=== PATIENT | female | born 1955 | race Caucasian/White ===

== ENCOUNTER 2022-01-01 18:41 | Inpatient (IN) | payer MEDICARE, OTHER ==
[~2022-01-01] VITALS: Ht 170.2 cm; Wt 90.7 kg
--- NOTE | 2022-01-01 19:50 | NUR ---
BLOOD COLLECTED AND SENT TO LAB
[2022-01-01] MEDS ORDERED: ACETAMINOPHEN ES 500 MG TABLET ONE (19:57)
[2022-01-01] MEDS ORDERED: IBUPROFEN 600 MG TABLET ONE (19:58)
[2022-01-01] MEDS ORDERED: IBUPROFEN 600 MG TABLET PO ONE (20:00)
[2022-01-01] MEDS ORDERED: ACETAMINOPHEN ES 500 MG TABLET PO ONE (20:00)
[2022-01-01] MEDS ORDERED: IV NS 0.9% 1,000 ML BAG IV ONE (20:00)
[2022-01-01 20:14] LABS: BASOPHILS % (AUTO) 0.3 % (0.0-2.0); HEMATOCRIT 38 % (33-45); HEMOGLOBIN 12.9 g/dL (11.5-14.8); LYMPHOCYTES # (AUTO) 0.6 K/uL (0.8-4.8); LYMPHOCYTES % (AUTO) 9.7 % (20.0-44.0); MEAN CORPUSCULAR HGB CONC 34 g/dl (31.0-36.0); MEAN CORPUSCULAR VOLUME 86 fL (82-100); MONOCYTES # (AUTO) 0.3 K/uL (0.1-1.30); MONOCYTES % (AUTO) 4.3 % (2.0-12.0); NEUTROPHILS % (AUTO) 85.7 % (43.0-81.0); PLATELET COUNT (AUTO) 172 K/uL (150-450); RED BLOOD CELL COUNT(AUTO) 4.46 MIL/uL (4.0-5.2); WHITE BLOOD COUNT (AUTO) 5.8 K/uL (4.3-11.0)
[2022-01-01 20:31] LABS: CALCIUM, SERUM 8.7 mg/dL (8.5-10.1); POTASSIUM 3.7 mmol/L (3.5-5.1)
--- NOTE | 2022-01-01 20:35 | NUR ---
PT RETURNED TO ER BED [address]
[2022-01-01 20:37] LABS: ALBUMIN 3.8 g/dL (3.4-5.0); BILIRUBIN,DIRECT 0.7 mg/dL (0.0-0.2); BILIRUBIN,TOTAL 1.3 mg/dL (0.2-1.0); TOTAL PROTEIN, SERUM 7.7 g/dL (6.4-8.2)
--- NOTE | 2022-01-01 21:17 | NUR ---
COVID SWAB DONE AND SENT TO LAB
[2022-01-01] MEDS ORDERED: ONDANSETRON HCL/PF - ER 4 MG/2 ML VIAL IV ONE (21:30)
[2022-01-01] MEDS ORDERED: PIPERACILLIN /TAZOBACTAM 3.375 G in IV D5W 50 ML IV ONE (21:30)
--- NOTE | 2022-01-01 21:30 | NUR ---
[facility] ELAN SILVA PAGED
[2022-01-01 21:33] LABS: BILIRUBIN,URINE NEGATIVE (NEGATIVE); COLOR,URINE YELLOW (YELLOW); LEUKOCYTE ESTERASE ,URINE NEGATIVE (NEGATIVE); NITRITE, URINE NEGATIVE (NEGATIVE); PH,URINE 5.5 (5.0-8.0); PROTEIN,URINE NEGATIVE (NEGATIVE); UGLUCOSE NEGATIVE (NEGATIVE); UROBILINOGEN,URINE 0.2 EU/dL (0.2)
[2022-01-01] MEDS ORDERED: PIPERACILLIN /TAZOBACTAM 3.375 G VIAL IV ONE (21:33)
[2022-01-01] MEDS ORDERED: ONDANSETRON HCL/PF 4 MG/2 ML VIAL ONE (21:33)
--- NOTE | 2022-01-01 21:45 | NUR ---
[facility] PAGED
--- NOTE | 2022-01-01 21:54 | NUR ---
[facility]PERATIONS ASSIST[facility] GI PAED ONCE AGAIN.
--- NOTE | 2022-01-01 22:05 | NUR ---
Kaylynn puentes in [facility] - 01/01/22 at 2211 by DEBRA [id number]
[2022-01-01 22:07] LABS: BACTERIA,URINE Many /HPF (None Seen); SQUAMOUS EPITHELIAL CELL,UR Few /HPF (None Seen); WBC,URINE 0-2 /HPF (0-3)
[2022-01-01] MEDS ORDERED: ONDANSETRON HCL/PF 4 MG/2 ML VIAL IVP PRN (22:30)
[2022-01-01] MEDS ORDERED: ACETAMINOPHEN 325 MG TABLET PO PRN (22:30)
[2022-01-01] MEDS ORDERED: MORPHINE SULFATE INJ 2 MG/ML DISP.SYRIN IV PRN (22:30)
--- NOTE | 2022-01-01 23:01 | NUR ---
REPORT GIVEN TO NATHANAEL.
[2022-01-01 23:27] VITALS: BP 127/71
--- NOTE | 2022-01-01 23:27 | NUR ---
PT TRANSFERRED TO 3 W PER H[facility] PROTOCOL.
[2022-01-01 23:50] VITALS: BP 127/71
--- NOTE | 2022-01-01 23:50 | NUR ---
MS LUCIA ADMITTING NOTES ADMITTED PATIENT FROM ER VIA STRETCHER THIS 67 Y.O FEMALE; AMBULATORY. ALERT, AWAKE AND ORIENTED X 4. MEXICAN SPEAKING, WITH DAUGHTER AT BEDSIDE STENOTYPIST. BREATHING IS EVEN AND NONLABORED. NO SOB NOTED. IN NO ACUTE DISTRESS NOTED. COMPLAINED OF ABDOMINAL PAIN WITH SCALE OF 8/10. VS TAKEN AND RECORDED: BP - 127/71 MM HG, MD - 90 BPM, RR - 22 BREATHS PER MINUTE, O2 SATURATION 98%, TEMP OF 100.1 WITH IV ACCESS ON LEFT HAND G20 AND RIGHT AC G20; INTACT AND SALINE LOCKED. ABLE TO MAKE NEEDS KNOWN. SAFETY MEASURES IMPLEMENTED: CALL MONTES WITHIN REACH, BED IN LOWEST LOCKED POSITION, SIDE RAILS UP X 2. TEMPERATURE RECHECKED; TEMP: 98.5. WILL CONTINUE TO MONITOR Addendum: 01/02/22 at 0530 by RAJANI FIERRO RN SKIN CHECKED DONE; INTACT.
[2022-01-01] MEDS: IV NS 0.9% 1,000 ML IV SCH (23:54)
--- NOTE | 2022-01-02 00:20 | NUR ---
MS RN NOTES COMPLAINED OF ABDOMINAL PAIN WITH SCALE OF 8/10; PRN MORPHINE SULFATE INJECTION 1ML GIVEN VIA IVTT ORDERED. WILL CONTINUE TO MONITOR
[2022-01-02] MEDS: ENOXAPARIN SODIUM 40 MG/0.4 ML DISP.SYRIN SQ SCH ×2 (00:25→21:16)
[2022-01-02] MEDS ORDERED: CEFEPIME 2 GM in IV D5W 100 ML IV ONE (01:00)
[2022-01-02] MEDS ORDERED: CEFEPIME 1 GM VIAL ONE (01:44)
--- NOTE | 2022-01-02 06:49 | NUR ---
MS RN CLOSING NOTES PATIENT IS ON BED; AWAKE, ALERT AND ORIENTED X 2-3, SAMI SPEAKING. BREATHING IS EVEN AND NONLABORED. NO SOB NOTED. IN NO ACUTE DISTRESS. DENIES ANY PAIN OR DISCOMFORT OF THIS TIME. ON ROOM AIR; TOLERATING WELL. WITH IV ACCESS ON LEFT HAND G20; INTACT AND SALINE LOCKED; RIGHT AC G #20 INFUSING WITH NS 1L REGULATED AT 75 ML/HR; INFUSING WELL, PATENT AND INTACT. NEEDS ATTENDED TO. SAFETY MEASURES IN PLACED. ENDORSED TO MORNING SHIFT FOR CONTINUITY OF CARE.
[2022-01-02 07:13] LABS: ALBUMIN 3.3 g/dL (3.4-5.0); BILIRUBIN,TOTAL 0.9 mg/dL (0.2-1.0); CALCIUM, SERUM 8.2 mg/dL (8.5-10.1); MAGNESIUM 1.5 mg/dL (1.8-2.4); PHOSPHORUS 3.1 mg/dL (2.5-4.9); POTASSIUM 3.6 mmol/L (3.5-5.1); TOTAL PROTEIN, SERUM 6.8 g/dL (6.4-8.2)
--- NOTE | 2022-01-02 07:20 | NUR ---
RN OPENING NOTES RECEIVED PATIENT ON BED, AWAKE, ALERT AND ORIENTED X 2-3, IN NO ACUTE DISTRESS. [place] SPEAKING. DAUGHTER AT BEDSIDE. STABLE ON ROOM AIR, BREATHING IS EVEN AND UNLABORED. NO SOB NOTED. DENIES ANY PAIN OR DISCOMFORT OF THIS TIME. WITH IV ACCESS ON LEFT HAND G20, INTACT AND SALINE LOCKED; RIGHT AC G #20 INFUSING WITH NS AT 75 ML/HR; INFUSING WELL. SAFETY MEASURES IN PLACE, BED IN LOWEST AND LOCKED POSITION, SR UP X2, CALL LIGHT PLACED WITHIN EASY REACH. WILL CONTINUE TO MONITOR.
[2022-01-02 07:41] LABS: BASOPHILS % (AUTO) 0.2 % (0.0-2.0); HEMATOCRIT 36 % (33-45); HEMOGLOBIN 12.1 g/dL (11.5-14.8); LYMPHOCYTES # (AUTO) 0.6 K/uL (0.8-4.8); LYMPHOCYTES % (AUTO) 6.7 % (20.0-44.0); MEAN CORPUSCULAR HGB CONC 34 g/dl (31.0-36.0); MEAN CORPUSCULAR VOLUME 85 fL (82-100); MONOCYTES # (AUTO) 0.4 K/uL (0.1-1.30); MONOCYTES % (AUTO) 4.9 % (2.0-12.0); NEUTROPHILS # (AUTO) 7.6 K/uL (1.8-8.9); NEUTROPHILS % (AUTO) 88.2 % (43.0-81.0); PLATELET COUNT (AUTO) 156 K/uL (150-450); RED BLOOD CELL COUNT(AUTO) 4.19 MIL/uL (4.0-5.2); WHITE BLOOD COUNT (AUTO) 8.6 K/uL (4.3-11.0)
[2022-01-02 08:00] VITALS: BP 105/60
[2022-01-02] MEDS: Magnesium 1GM/D5W 100ML PREMIX 100 ML IV SCH ×2 (10:04→11:05)
--- NOTE | 2022-01-02 10:20 | NUR ---
RN NOTES PATIENT PICKED UP FOR MRCP VIA W/C. IN STABLE CONDITION.
--- NOTE | 2022-01-02 11:01 | NUR ---
RN [facility].
[2022-01-02] MEDS: CEFEPIME 2 GM in IV D5W 100 ML IV SCH (13:38)
[2022-01-02] MEDS: IV NS 0.9% 1,000 ML IV SCH (15:08)
[2022-01-02 16:00] VITALS: BP 104/70
--- NOTE | 2022-01-02 18:46 | NUR ---
RN CLOSING NOTES PATIENT RESTING IN BED, ALERT AND ORIENTED X 3, VERBALLY RESPONSIVE. IN NO ACUTE DISTRESS. DAUGHTER AT BEDSIDE. REMAINS STABLE ON ROOM AIR, BREATHING IS EVEN AND UNLABORED. NO SOB NOTED. DENIES ANY PAIN OR DISCOMFORT AT THIS TIME. IV ACCESS ON LEFT HAND #20G, INTACT AND PATENT, INFUSING WITH NS AT 75 ML/HR, INFUSING WELL. SAFETY MEASURES MAINTAINED. BED IN LOWEST AND LOCKED POSITION, SR UP X2, CALL LIGHT PLACED WITHIN EASY REACH. WILL ENDORSE TO NEXT SHIFT FOR CONTINUITY OF CARE.
--- NOTE | 2022-01-02 19:51 | NUR ---
MS RN OPENING NOTES: RECEIVED PATIENT AWAKE IN BED, ACCOMPANIED BY FAMILY, BED IN LOW POSITION, CALL LIGHTS WITHIN REACH, NO COMPLAIN OF PAIN AND DISCOMFORT AT THIS TIME, PATIENT IS A/OX3 JET TO MAKE NEEDS KNOWN, AMBULATORY ON ROOM AIR SATURATING WELL, IV LINE AT [facility] #20 WITH ONGOING NSS@75M PER HOUR INFUSING WELL, PATIENT KEPT CLEAN AND DRY ALL NEEDS MET WILL CONTINUE TO MONITOR.
[2022-01-02 20:00] VITALS: BP 107/58
[2022-01-02 20:09] VITALS: BP 107/58
[2022-01-03] MEDS: CEFEPIME 2 GM in IV D5W 100 ML IV SCH ×2 (02:20→13:59)
--- NOTE | 2022-01-03 06:20 | NUR ---
RN CLOSING NOTES: PATIENT SLEEP IN BED COMFORTABLY, BED IN LOW POSITION, CALL LIGHTS WITHIN REACH, NO COMPLAIN OF PAIN AND DISCOMFORT AT THIS TIME,ON ROOM AIR SATURATING WELL, PATIENT WITH IV LINE AT L HAND #20 WITH ONGOING NSS @75ML/HR INFUSING WELL, PATIENT IS A/O X 3 AMBULATORY ABLE TO MAKE NEEDS KNOWN, KEPT CLEAN AND DRY ALL NEED ENDORSE TO INCOMING SHIFT.
[2022-01-03 08:00] VITALS: BP 110/66
--- NOTE | 2022-01-03 08:00 | NUR ---
MS RN OPENING NOTE Patient in bed, asleep. A/O x 3. On room air, breathing evenly and unlabored. No SOB or s/s of distress noted. IV access on Left hand #20 infusing NS at 75 ml/hr. Safety precautions in place: bed in low, locked position; siderails up x 2; yara light within reach. Will continue to monitor.
[2022-01-03] MEDS ORDERED: VANCOMYCIN 1 GM in IV D5W 250ml IV SCH (10:00)
[2022-01-03 16:00] VITALS: BP 115/57
--- NOTE | 2022-01-03 18:57 | NUR ---
MS RN CLOSING NOTE Patient in bed, resting. A/O x 3, able to make needs known. Stable on room air, breathing evenly and unlabored. No SOB or s/s of distress noted. IV access on Right hand #22 SL, intact and patent. Due meds given. All needs attended to. Safety precautions maintained: bed in low, locked position; siderails up x 2; yara light within reach. Will endorse to security shift supervisor nurse for DALE.
--- NOTE | 2022-01-03 19:41 | NUR ---
MS RN OPENING NOTE RECEIVED PATIENT SITTING ON THE CHAIR. TWO FAMILY MEMBERS AT BEDSIDE. PATIENT A/OX4. NO S/S OF APPARENT DISTRESS IN ROOM AIR. DENIES PAIN. NO FLUIDS RUNNING AT THIS TIME. WILL CONTINUE TO MONITOR.
[2022-01-03 20:00] VITALS: BP 122/62
[2022-01-03] MEDS: ENOXAPARIN SODIUM 40 MG/0.4 ML DISP.SYRIN SQ SCH (21:24)
[2022-01-04] MEDS: CEFEPIME 2 GM in IV D5W 100 ML IV SCH ×2 (02:00→14:13)
[2022-01-04 06:26] LABS: BASOPHILS % (AUTO) 0.9 % (0.0-2.0); EOSINOPHILS % (AUTO) 2.2 % (0.0-6.0); HEMATOCRIT 34 % (33-45); HEMOGLOBIN 11.5 g/dL (11.5-14.8); LYMPHOCYTES # (AUTO) 1.5 K/uL (0.8-4.8); LYMPHOCYTES % (AUTO) 32.4 % (20.0-44.0); MEAN CORPUSCULAR HGB CONC 34 g/dl (31.0-36.0); MEAN CORPUSCULAR VOLUME 86 fL (82-100); MONOCYTES # (AUTO) 0.4 K/uL (0.1-1.30); MONOCYTES % (AUTO) 8.9 % (2.0-12.0); NEUTROPHILS # (AUTO) 2.6 K/uL (1.8-8.9); NEUTROPHILS % (AUTO) 55.6 % (43.0-81.0); PLATELET COUNT (AUTO) 168 K/uL (150-450); RED BLOOD CELL COUNT(AUTO) 3.98 MIL/uL (4.0-5.2); WHITE BLOOD COUNT (AUTO) 4.8 K/uL (4.3-11.0)
[2022-01-04 06:27] LABS: CALCIUM, SERUM 8.6 mg/dL (8.5-10.1); CREATININE 0.8 mg/dL (0.6-1.3); MAGNESIUM 2.2 mg/dL (1.8-2.4); PHOSPHORUS 3.2 mg/dL (2.5-4.9); POTASSIUM 3.8 mmol/L (3.5-5.1)
--- NOTE | 2022-01-04 07:25 | NUR ---
MS RN OPENING NOTES PATIENT IN BED ASLEEP, EASILY AWAKEN UPON CALL. A/OX4. ABLE TO MAKE NEEDS KNOWN. ON RA, TOLERATING WELL. BREATHING EVEN AND UNLABORED. NOT IN ANY SIGN OF DISTRESS. IV ACCESS ON RIGHT HAND G #22 ON SALINE LOCK, INTACT AND PATENT. SAFETY MEASURES IN PLACE: BED IN LOWEST AND LOCKED POSITION, SIDE RAILS UP X2, CALL LIGHT WITHIN REACH. ENCOURAGED PT TO USE THE CALL LIGHT AND CALL IF ASSISTANCE IS NEEDED. WILL CONTINUE TO MONITOR PT.
--- NOTE | 2022-01-04 07:28 | NUR ---
MS RN CLOSING NOTE PATIENT IN BED. A/OX4. NO S/S OF APPARENT DISTRESS IN ROOM AIR. DENIES PAIN. ALL NEEDS ATTENDED. ALL SCHEDULED MEDICATIONS ADMINISTERED. NO FLUIDS RUNNING AT THIS TIME. CRITICAL LEVEL 3.23 REPORTED AND ENDORSED TO AM RNS. SAFETY IN PLACE. ENDORSED TO JUANCARLOS FOR CONTINUITY OF CARE. Addendum: 01/04/22 at 1857 by ISHA LEVY RN ERROR: THIS NOTE IS DUPLICATE FROM THIS MORNING Addendum: 01/04/22 at 1901 by ISHA LEVY RN CORRECTION: THIS ABOVE NOTES IS FROM ROAD DESIGN DRAFTSPERSON CLOSING NOTES FROM [facility]. DISREGARD THE ERROR NOTES I MADE.
[2022-01-04 08:00] VITALS: BP 129/64
[2022-01-04 16:00] VITALS: BP 143/75
--- NOTE | 2022-01-04 18:53 | NUR ---
MS RN CLOSING NOTS PATIENT IN BED WATCHING TV AT THIS TIME. A/OX4. ABLE TO MAKE NEEDS KNOWN. NO S/S OF APPARENT DISTRESS IN ROOM AIR. IV ACCES ON RIGHT HAND G# 22 INTACT, PATENT AND FLUSHES WELL. ALL NEEDS ATTENDED WELL. ALL SCHEDULED MEDICATIONS ADMINISTERED AND TOLERATED WELL. SAFETY KEPT IN PLACED: BED IN LOWEST LOCKED POSITION WITH SR-UP X2. CALL LIGHT W/IN EASY REACH OF PT. WILL ENDORSE DALE TO DOUGHNUT MAKER NURSE.
[2022-01-04] MEDS ORDERED: CEFTRIAXONE 2 G in IV D5W 100 ML IV SCH (19:00)
--- NOTE | 2022-01-04 19:30 | NUR ---
MS RN OPENING NOTE RECEIVED PATIENT IN ROOM WITH 2 VISITORS. PT. A/OX4, AND AMBULATES WITH STEADY GAIT. NO S/S OF APPARENT DISTRESS IN ROOM AIR. DENIES PAIN. NO FLUIDS RUNNING AT THIS TIME. ENCOURAGED THE USE OF CALL LIGHT. WILL CONTINUE WITH CARE PLAN.
[2022-01-04 20:10] VITALS: BP 132/62
[2022-01-04] MEDS: ENOXAPARIN SODIUM 40 MG/0.4 ML DISP.SYRIN SQ SCH (22:46)
[2022-01-05 04:16] VITALS: BP 128/59
[2022-01-05 06:26] LABS: BASOPHILS % (AUTO) 0.9 % (0.0-2.0); EOSINOPHILS % (AUTO) 1.9 % (0.0-6.0); HEMATOCRIT 36 % (33-45); LYMPHOCYTES # (AUTO) 1.7 K/uL (0.8-4.8); LYMPHOCYTES % (AUTO) 33.7 % (20.0-44.0); MEAN CORPUSCULAR HGB CONC 34 g/dl (31.0-36.0); MEAN CORPUSCULAR VOLUME 85 fL (82-100); MONOCYTES # (AUTO) 0.4 K/uL (0.1-1.30); MONOCYTES % (AUTO) 7.8 % (2.0-12.0); NEUTROPHILS # (AUTO) 2.8 K/uL (1.8-8.9); NEUTROPHILS % (AUTO) 55.7 % (43.0-81.0); PLATELET COUNT (AUTO) 202 K/uL (150-450); RED BLOOD CELL COUNT(AUTO) 4.17 MIL/uL (4.0-5.2); WHITE BLOOD COUNT (AUTO) 5.1 K/uL (4.3-11.0)
[2022-01-05 06:33] LABS: CALCIUM, SERUM 8.9 mg/dL (8.5-10.1); CREATININE 0.8 mg/dL (0.6-1.3); PHOSPHORUS 4.9 mg/dL (2.5-4.9); POTASSIUM 3.9 mmol/L (3.5-5.1)
[2022-01-05 08:00] VITALS: BP 129/54
[2022-01-05] MEDS ORDERED: LEVO750T46 PO (10:38)
--- NOTE | 2022-01-05 15:54 | NUR ---
RN DISCHARGED NOTES PT DISCHARGED HOME IN STABLE CONDITION. PT IS A/O X 4 AND ABlE TO MAKE NEEDS KNOWN. AMBULATORY WITH STEADY GAIT. V/S TAKEN, STABLE AND RECORDED. NO SKIN ISSUES NOTED. ALL BELONGINGS CHECKED AND BELONGINGS LIST SIGNED BY PT'S DAUGHTER. IV ACCESS ON RIGHT HAND G #22 REMOVED, NO ACTIVE BLEEDING NOTED AND DRY PRESSURE DRESSING APPLIED AT SITE. HEALTH TEACHINGS/DISCHARGED INSTRUCTIONS GIVEN TO PT AND DAUGHTER DANYA, BOTH VERBALIZED UNDERSTANDING. PT LEFT UNIT AMBULATORY AT 1530 ACCOMPANIED BY DAUGHTER. CHARGE NURSE AWARE OF DISCHARGE.
== END 2022-01-05 15:00 | disposition home or self-care (01) | DRG 871 ==
LOC: ER 18:43 → MED 23:05
PROVIDERS: ADMIT Internal Medicine; ATTEND Registered Nurse
DX: A41.51 Sepsis due to Escherichia coli [E. coli] (principal); J18.9 Pneumonia, unspecified organism; E87.2 Acidosis; N39.0 Urinary tract infection, site not specified; R65.20 Severe sepsis without septic shock; E78.5 Hyperlipidemia, unspecified; K76.0 Fatty (change of) liver, not elsewhere classified; E66.9 Obesity, unspecified; Z87.442 Personal history of urinary calculi; Z90.49 Acquired absence of other specified parts of digestive tract; Z91.19 Patient's noncompliance with other medical treatment and regimen; K76.89 Other specified diseases of liver; M47.816 Spondylosis without myelopathy or radiculopathy, lumbar region; K42.9 Umbilical hernia without obstruction or gangrene; Z68.31 Body mass index [BMI] 31.0-31.9, adult
CPT/HCPCS: 36415; 71045-TC; 74181-TC; 80048-TC; 80053-TC; 80074; 80076-TC; 80202-TC; 81001; 83605-TC; 83690-TC; 83735-TC; 83880; 84100-TC; 84484-TC; 85025-TC; 85730-TC; 87040-TC; 87081-TC; 87086-TC; 87186-TC; C9803; G0378; J0692; J0696; J1650; J2270; J2405; J2543; J3370; J3475; J7030; J7050; J7060